=== PATIENT | male | born 1975 | race Caucasian/White ===

== ENCOUNTER → 2021-12-20 | Outpatient (CLI) | payer BC ==
--- NOTE | 2021-12-20 15:34 | CONS ---
CONSULTATION DATE OF SERVICE: 12/20/2021 This 46-year-old gentleman has been evaluated in [facility] for possible obstructive sleep apnea-hypopnea syndrome. HISTORY OF PRESENT ILLNESS/SLEEP-WAKE EVALUATION: Patient's usual sleep schedule on weekdays is from 11 p.m. to 4 a.m., on weekends from midnight until 7 a.m. No problems with falling asleep. No TV in bedroom. Patient sleeps in different positions. According to his , he snores and has witnessed episodes of stopped breathing during sleep. The patient also wakes up from sleep with choking, nocturia, dry mouth, gasping for air, sleeptalking. No history of hypnagogic hallucinations, sleep paralysis or cataplexy. No abnormal movements during the night. In the morning the patient wakes up tired, falling asleep during the day, worries about his sleep, has episodes of irritability. [place] Sleepiness Scale is in very high range at 20, but the patient usually does not take any naps. If he does take a nap, he may see vivid dreams. PAST MEDICAL HISTORY: Positive for sinus problems. PAST SURGICAL HISTORY: Tracheostomy in childhood, appendectomy, tonsillectomy. MEDICATIONS: None. FAMILY HISTORY: Hypertension, hyperlipidemia. SOCIAL HISTORY: Negative for smoking. Negative for using alcohol. REVIEW OF SYSTEMS: Multiple awakenings from sleep, sleepiness during the day, snoring. No fevers. No double vision. No recent chest pain. No shortness of breath. No abdominal pain. No bleeding episodes. No blood in the urine. No seizure episodes. PHYSICAL EXAMINATION: GENERAL: Pleasant gentleman without distress. VITAL SIGNS: BP 145/92, HR 65, RR 16, height 6 feet 4 inches, weight 273.4, body mass index 33.2, temperature 97.3, oxygen saturation at room air 100%. HEENT: PERRLA, EOMI, evaluation of oropharynx showed tongue protrudes midline. Extremely low position of soft palate; Mallampati IV. NECK: Supple, no JVD. Thyroid is not palpable. Neck measures 17 inches in circumference. LUNGS: Clear to percussion and to auscultation. Good air exchange. No wheezing or rhonchi. HEART: S1, S2 regular. No murmurs, gallops, or rubs. ABDOMEN: Soft and nontender. Bowel sounds are present. No organomegaly appreciated. EXTREMITIES: No clubbing or cyanosis. MANAGER CARDIOLOGY: Awake, alert, and oriented X3. Cranial nerves 2 to 7 intact. There is no fasciculation or atrophy. noted. No focal deficits observed. IMPRESSION: 1. Snoring, witnessed episodes of stopped breathing during sleep, extremely low position of soft palate, Mallampati IV, wide neck, sleepiness by [place] Sleepiness Scale; obstructive sleep apnea-hypopnea syndrome. 2. Obesity. BMI 33.2. 3. History of sinus problems. 4. Headaches. 5. History of knee arthritis. 6. History of hyperlipidemia. 7. Status post tonsillectomy. 8. Status post appendectomy. 9. Status post tracheostomy in childhood. PLAN: 1. Home sleep apnea test for evaluation of patient's breathing during sleep. 2. CPAP/BiPAP titration if sleep study confirms obstructive sleep apnea-hypopnea syndrome. 3. Preferable position during sleep on the side. 4. No driving if patient feels any sleepiness. 5. I will see patient for follow up visit to explain results of testing and following plan. Thank you very much for referring this patient for consultation. Sincerely, Nolan Ventura MD, PhD, FAASM Diplomat of [place] Sleep Medicine Board of [place] [employer] [facility] [place] MMODL / ATILIO: [id number] /
== END ==
LOC: SLEEP 14:18
PROVIDERS: ATTEND Internal Medicine
DX: G47.33 Obstructive sleep apnea (adult) (pediatric) (principal); E66.9 Obesity, unspecified; E78.5 Hyperlipidemia, unspecified; Z87.09 Personal history of other diseases of the respiratory system; Z87.39 Personal history of other diseases of the musculoskeletal system and connective tissue; Z68.33 Body mass index [BMI] 33.0-33.9, adult; Z90.09 Acquired absence of other part of head and neck; Z90.49 Acquired absence of other specified parts of digestive tract
CPT/HCPCS: 99211

== ENCOUNTER → 2022-05-22 | Outpatient (CLI) | payer BC ==
--- NOTE | 2022-05-22 17:44 | P.PN ---
Subjective DATE: 05/22/2022 FOLLOW UP VISIT. Patient with obstructive sleep apnea hypopnea syndrome return to sleep center for follow-up visit. Recently patient had sleep study which documented obstructive sleep apnea hypopnea syndrome. Patient was initiated on PAP therapy and today is first visit after treatment was started. Patient was able to use PAP equipment every night for the whole night. The patient does not have significant problems with the mask, PAP pressure and humidification. [place] sleepiness scale is 16. I checked PAP unit. [address] connector does not work well. PAP unit pressure 4-17 cm H2O. Usage is for 193 hours total.. Apnea Hypopnea Index is in the range of 3.1, which is normal. MEDICATIONS: None During physical exam: GENERAL: A pleasant patient without any distress. VITAL SIGNS: BP 130/87, HR 55, RR 12 , weight 282.6, height 6 foot 4 inches, temperature 97.1, oxygen saturation at room air 97 . HEENT: PERRLA, EOMI.low position of soft palate, Mallapati 4 . NECK: Supple. No JVD. LUNGS: Clear to percussion and to auscultation. Good air exchange. No wheezing or rhonchi. HEART: S1, S2 regular. ABDOMEN: Soft and nontender.[] EXTREMITIES: No clubbing or cyanosis. PLANT MAINTENANCE MECHANIC: Awake, alert, and oriented x3. No focal deficit. Impressions: 1. Obstructive sleep apnea-hypopnea syndrome. Patient demonstrated good compliance with treatment, benefiting from treatment. 2. Obesity. BMI 34.4 3. History of sinuses problems. 4. Headaches. 5. History of knee arthritis. 6. History of hyperlipidemia. 7. Status post tonsillectomy. 8. Status post appendectomy. 9. Status post tracheostoma in childhood. Plan: 1. Continue using PAP equipment every night for the whole night. 2. To change air filter at least 1-2 times per month. 3. PAP unit should stay lower then position of the head. 4. Advised patient to remove all remaining water from humidifier canister daily and make it dry after each usage. Refill canister with fresh distilled water before each usage. 5. Sleep hygiene with regular time in bed for at least 8 hours. 6. Precautions related to driving. No driving if feel any sleepiness. 7. I will maintain prescription for PAP supplies including mask, tube, filters. 8. Follow up visit in 6 months or earlier if patient has any problems. 9. Watching weight. Thank you very much for allowing me to participate in the management of your patient. Nolan Ventura MD, PhD, FAASM. Diplomat of [place] [employer], Sleep Medicine Board by [employer] [facility] [place]
== END ==
LOC: SLEEP 15:38
PROVIDERS: ATTEND Internal Medicine
DX: G47.33 Obstructive sleep apnea (adult) (pediatric) (principal); E66.9 Obesity, unspecified; Z68.34 Body mass index [BMI] 34.0-34.9, adult; Z87.09 Personal history of other diseases of the respiratory system; M17.10 Unilateral primary osteoarthritis, unspecified knee; E78.5 Hyperlipidemia, unspecified; Z90.09 Acquired absence of other part of head and neck; Z90.49 Acquired absence of other specified parts of digestive tract; Z98.890 Other specified postprocedural states; Z99.89 Dependence on other enabling machines and devices

== ENCOUNTER → 2024-07-01 | Outpatient (CLI) | payer OTHER | END | disposition home or self-care (01) | LOC: LABWHC1 15:34 | PROVIDERS: ATTEND Orthopaedic Surgery | DX: Z01.818 Encounter for other preprocedural examination | CPT/HCPCS: 36415; 80051; 85025 ==

== ENCOUNTER 2024-07-15 07:11 | Day surgery (SDC) | payer OTHER ==
[2024-07-15] MEDS ORDERED: MIDAZOLAM 2 MG/2 ML VIAL ONE ×3 (08:09→08:57)
[2024-07-15] MEDS ORDERED: DEXAMETHASONE SOD PHOSPHATE 4 MG/ML 1 ML VIAL ONE ×2 (08:09)
[2024-07-15] MEDS ORDERED: ONDANSETRON 4 MG/2 ML VIAL ONE ×2 (08:09)
[2024-07-15] MEDS ORDERED: fentaNYL (PF) 50 MCG/ML 2 ML AMP ONE ×3 (08:09→08:57)
[2024-07-15] MEDS ORDERED: ROPIVACAINE 5 MG/ML 30 ML VIAL ONE ×3 (08:09→08:57)
[2024-07-15] MEDS ORDERED: SUCCINYLCHOLINE CHLORIDE 200 MG/10 ML VIAL IV ONE (08:57)
[2024-07-15] MEDS ORDERED: NEOSTIGMINE 1 MG/ML 10 ML VIAL ONE (08:57)
[2024-07-15] MEDS ORDERED: LIDOCAINE 1% INJ 10MG/ML (20 ML MDV) ONE (08:57)
[2024-07-15] MEDS ORDERED: PROPOFOL 10 MG/ML 20 ML VIAL IV ONE (08:57)
[2024-07-15] MEDS ORDERED: LACTATED RINGERS 1,000 ML BAG ONE (08:57)
[2024-07-15] MEDS ORDERED: PHENYLEPHRINE 10 MG/ML VIAL ONE (08:57)
--- NOTE | 2024-07-16 15:57 | HP ---
HISTORY AND PHYSICAL SURGERY DATE: 07/15/2024. HISTORY: Dennis Dias is a 48-year-old gentleman seen with progressive left shoulder pain. Options for treatment were discussed with him. He elects to proceed with left shoulder arthroscopy. Consent is obtained. PAST MEDICAL HISTORY: Noncontributory. PAST SURGICAL HISTORY: Appendectomy, tracheostomy. DAILY MEDICATIONS: 1. Ibuprofen. 2. Lisinopril. ALLERGIES: None. SOCIAL HISTORY: Denies tobacco use. PHYSICAL EVALUATION OF THE LEFT SHOULDER: Flexion is 130 degrees, abduction 130 degrees. External rotation is 40 degrees with pain and weakness. Tenderness along the anterolateral acromion rotator cuff insertion. Impingement positive at 90 degrees. Distal neurovascular exam is intact. IMAGING: Radiographs of left shoulder reveal a type 2 acromion, acromioclavicular joint osteoarthritis, and cystic changes of the tuberosity. MRI left shoulder revealed rotator cuff tendon tear, labral tear, and acromioclavicular joint osteoarthritis. IMPRESSION: 1. Left shoulder impingement with rotator cuff tear. 2. Left shoulder acromioclavicular joint osteoarthritis. 3. Left shoulder labral tear. 4. Left shoulder bicipital tendinosis. PLAN: Left shoulder arthroscopy with rotator cuff repair, subacromial decompression, Triny procedure, biceps tenodesis, and debridement of labral tear. MMODL / IJN: [id number] /
--- NOTE | 2024-07-16 15:58 | OP ---
OPERATIVE REPORT DATE OF SERVICE : 07/15/2024 PREOPERATIVE DIAGNOSIS: Left shoulder impingement. POSTOPERATIVE DIAGNOSES: 1. Left shoulder rotator cuff tear. 2. Left shoulder impingement. 3. Left shoulder bicipital tendinitis. 4. Left shoulder acromioclavicular joint osteoarthritis. 5. Left shoulder labral tear. PROCEDURES PERFORMED: 1. Arthroscopic rotator cuff repair, left shoulder. 2. Arthroscopic subacromial decompression, left shoulder. 3. Arthroscopic biceps tenodesis, left shoulder. 4. Arthroscopic Triny procedure, left shoulder. 5. Arthroscopic debridement of labral tear, left shoulder. MANAGER BUILDING: Godwin Galeas. ANESTHESIA: General with preoperative interscalene block. COMPLICATIONS: None. ESTIMATED BLOOD LOSS: 6 mL. IMPLANTS UTILIZED: 2-Arthrex 4.75 SwiveLock anchors. INDICATIONS: Dennis Dias is a gentleman seen with progressive left shoulder pain. After having treatment options discussed, he elected to proceed with arthroscopy. Consent was obtained. The patient was taken to the operative suite after having undergone an interscalene block by the primary anesthesia. He underwent a general anesthetic by the primary anesthesia. He received preoperative IV antibiotics. He was placed in a lateral recumbent position. Left shoulder was prepped and draped in normal sterile orthopedic fashion. Placed in 10 pounds longitudinal traction. A posterior incision was made for posterior working portal site. Trocar and cannula were inserted in the glenohumeral joint. Arthroscopy initiated. I created the anterior portal site. There was a trocar followed by a probe. There was a partial tearing of the superior and anterior labrum. There was hyperemia, partial tearing along the biceps tendon, very mild grade 1 chondromalacia changes of the glenohumeral joint without tears. I introduced a motorized shaver and debrided out the labral tear getting down to stable labral tissue. The residual labrum appeared stable. I decided to proceed with arthroscopic biceps tenodesis. I introduced a cannula through my anterior portal site. I passed a Loop 'N' Tack type stitch to the biceps tendon. I released the biceps tendon from the superior anchor. I punched a hole at the interval for insertion of an anchor. The suture was passed through the eyelet of an Arthrex 4.75 SwiveLock anchor. I placed the eyelet into the pre-punched hole. I held it in position while TRANG Balbuena, tensioned the suture and deployed the anchor with excellent fixation noted. The residual suture limb was clipped. We had a stable appearing biceps tenodesis. Instruments were now removed from the glenohumeral joint. Utilizing the posterior working portal site, the trocar and cannula were introduced into the subacromial space. Arthroscopy initiated. I made an incision 2 fingerbreadths lateral to the acromion, introduced a trocar, followed by motorized shaver and I debrided the thick subacromial bursal tissue exposing the undersurface of the anterior acromion, which was very prominent with diminished subacromial space. I introduced my motorized gaudencio, performed a subacromial decompression, decompressing the area very nicely. I turned my attention to the acromioclavicular joint. There was significant osteoarthritis tear through the anterior portal site. I introduced my motorized gaudencio, performed a Triny procedure, removing 8 mm of bone off the distal clavicle and I had a good Triny/resection arthroplasty of the acromioclavicular joint noted. I now turned my attention to the rotator cuff tendon. There was a full- thickness tear along the posterior aspect of the distal supraspinatus. I debrided the margins getting down to stable tendon tissue. I debrided the footprint with a motorized gaudencio. With the assistance of TRANG Balbuena, I passed 3 everted mattress sutures through good bites of rotator cuff tendon. I punched a hole on the footprint area for insertion of an anchor. I now passed all 6 limbs of suture through the eyelet of an Arthrex 4.75 SwiveLock anchor. I placed the eyelet into the pre punch hole. I held it in position while TRANG Balbuena tensioned all 6 limbs of suture and deployed the anchor with good fixation noted. The residual suture limbs were clipped. We had a stable appearing rotator cuff tendon repair with good compression of the patella on the entire footprint. Instruments were removed from the subacromial space. The portal sites were approximated with nylon suture. Sterile dressings were applied followed by placing the patient into a sling. He was then awakened, transferred to a bed, then recovery in stable condition having tolerated the procedure well. TRANG Munoz assisted in all aspects of this procedure. MMODL / ALMAN: [id number] /
== END 2024-07-15 13:00 ==
LOC: OR 07:11
PROVIDERS: ATTEND Orthopaedic Surgery
DX: M75.122 Complete rotator cuff tear or rupture of left shoulder, not specified as traumatic (principal); S43.432A Superior glenoid labrum lesion of left shoulder, initial encounter; M75.42 Impingement syndrome of left shoulder; M75.22 Bicipital tendinitis, left shoulder; M19.012 Primary osteoarthritis, left shoulder; M94.212 Chondromalacia, left shoulder; I10 Essential (primary) hypertension; G47.33 Obstructive sleep apnea (adult) (pediatric); Z79.899 Other long term (current) drug therapy; X58.XXXA Exposure to other specified factors, initial encounter
CPT/HCPCS: 64415